=== PATIENT | male | born 2000 | race Caucasian/White ===

== ENCOUNTER 2025-01-26 23:35 | Emergency (ER) | payer OTHER ==
[~2025-01-26] VITALS: Ht 162.6 cm; Wt 79.5 kg
[2025-01-26 23:41] VITALS: TEMP 98.2
[2025-01-27] MEDS: LIDOCAINE 1% 10 ML VIAL SQ ONE (01:50)
[2025-01-27] MEDS ORDERED: TETANUS/DIPHTHERIA TOXOID [TENIVAC] [7YR+] 0.5 ML SYRINGE IM. ONE (02:15)
[2025-01-27] MEDS: PERTUSS(ACELL),DIPH,TET/PF 0.5 ML SYRINGE [ADULT] IM. ONE (02:26)
[2025-01-27] MEDS ORDERED: CEPH-558 PO (06:08)
[2025-01-27 06:12] VITALS: BP 127/70; PULSE 79; RESP 18; O2SAT 98
== END 2025-01-27 06:24 | disposition home or self-care (01) ==
LOC: EMS 23:35
DX: S61.212A Laceration without foreign body of right middle finger without damage to nail, initial encounter (principal); W45.8XXA Other foreign body or object entering through skin, initial encounter; Y93.89 Activity, other specified; Y92.89 Other specified places as the place of occurrence of the external cause; Y99.8 Other external cause status
CPT/HCPCS: 99284; 73130; 12002; 90714; 90471; 96372; J0690; J3490